=== PATIENT | female | born 1980 | race Hispanic/Latino ===

== ENCOUNTER 2016-08-12 13:52 | Emergency (ER) | payer MEDICAID, OTHER ==
[~2016-08-12] VITALS: Ht 154.9 cm; Wt 68.2 kg
[~2016-08-12 13:52] MED LIST: NOMED
[2016-08-12 14:06] VITALS: BP 133/79; PULSE 114; RESP 16; O2SAT 100
--- NOTE | 2016-08-12 14:27 | ED.REPORT ---
HPI- Female Date of Service August 12, 2016 ED Provider: Nick Banks MD Pt is a healthy 36 year old female who is 9 weeks presenting to the ED complaining of urinary symptoms onset 2 days ago. She reports bleeding after intercourse and dysuria. Denies fever, nausea, vomiting. Nursing Notes Stated Complaint: DYSURIA Chief Complaint: General Complaint Nursing Notes Reviewed: Yes ([employer], meds not reconciled) Allergies: Coded Allergies: No Known Allergies (Unverified Allergy, Unknown, 09/08/15) Scheduled Nitrofurantoin Monohyd/M-Cryst (MacroBid) 100 Mg Capsule 100 MG PO BID Miscellaneous Medications No Historical Medication (No Historical Medication) Ea General Time Seen by MD: 14:18 Chief Complaint Dysuria Hx Obtained From: Patient Arrived By: Walk-in Sudden in Onset?: No Onset Occurred: 2 days ago Symptom Duration: Since onset Quality: Painful Severity: Current: Mild Severity: Maximum: Mild Recent Healthcare: No recent doctor visit, No recent hospitalization Similar Sx Previous: No Risk- Female Ectopic Risk Stratification RF Statements: Risk factors reviewed Past Medical History Past Medical History None reported Past Surgical History None reported Smoking History Unknown if Ever Smoker Social History Drug Use: THC Ambulatory Status Independent Review of Systems Constitutional: Denies: Fever GI: Denies: Nausea, Vomiting Female: Reports: Dysuria, , Vaginal bleeding - abnl Complete sys rev & neg: except as marked. Physical Exam Initial Vital Signs Vital Signs (First) Date Time Temp Pulse Resp B/P Pulse Ox O2 Delivery O2 Flow Rate FiO2 08/12/16 14:06 36.6 114 16 133/79 100 Room Air Initial VS: Reviewed, Vital signs abnormal (tachycardic) General/Constitutional: Well-developed, Well-nourished Head / Eyes: Atraumatic, Normocephalic, PERRL ENT: Mucous membranes moist, Conjunctiva normal, No scleral icterus Neck: Supple, Non-tender, Full range of motion Respiratory: Breath sounds normal, Clear to auscultation, No respiratory distress Cardiovascular: Regular rate & rhythm, Heart sounds normal, Intact distal pulses Abdomen / GI: Soft, Non-tender, No guarding, No rebound, No distention Extremities: Vascular intact, Neuro intact, No swelling, No tenderness Skin: Warm, Dry, No cyanosis Neurologic: Alert, Oriented, Nonfocal Psychiatric: Mood/affect normal, Behavior normal, Normal thought content Interpretation & Diagnostics Lab Results Interpretation Result Diagram: 08/12/16 1515 Test 08/12/16 14:47 08/12/16 15:15 Urine Color Yellow (YELLOW) Urine Appearance Clear (CLEAR,HAZY) Urine pH 6.5 (5.0-8.0) Urine Specific [place] <1.005 (1.003-1.035) Urine Protein Negativemg/dL (NEG,TRACE) Urine Glucose (UA) Negativemg/dL (NEGATIVE) Urine Ketones Negativemg/dL (NEGATIVE) Urine Occult Blood Large (NEGATIVE) Urine Nitrite Negative (NEGATIVE) Urine Bilirubin Negative (NEGATIVE) Urine Urobilinogen Normalmg/dL (NORMAL) Urine Leukocyte Esterase Large (NEGATIVE) Urine RBC 3-10/hpf (0-2) Urine WBC >50/hpf (0-5) Urine Epithelial Cells Moderate/hpf (NONE-MOD) Urine Crystals None seen (NONE SEEN) Urine Bacteria Few/hpf (NONE-FEW) Urine Hyaline Casts None/lpf (NONE) Urine Granular Casts None seen (NONE SEEN) Urine Waxy Casts None seen (NONE SEEN) Urine Red Blood Cell Casts None seen (NONE SEEN) Urine White Blood Cell Casts None seen (NONE SEEN) Urine Mucus None seen (None Seen) Urine Trichomonas None seen (NONE SEEN) Urine Yeast None (NONE SEEN) Urinalysis Comment None Urine Culture Reflexed Indicated White Blood Count 10.5th/mm3 (3.8-10.1) Red Blood Count 4.02mil/mm3 (3.90-5.20) Hemoglobin 12.4g/dL (12.0-15.6) Hematocrit 37.0% (35.0-46.0) Mean Corpuscular Volume 92.0fL (81-100) Mean Corpuscular Hemoglobin 30.8pg (27.0-35.0) Mean Corpuscular Hemoglobin Concent 33.5% (32.0-37.0) Red Cell Distribution Width 12.0% (12.3-15.4) Platelet Count 320bil/L (150-400) Neutrophils (%) (Auto) 71.8% (40-74) Lymphocytes (%) (Auto) 18.7% (14-46) Monocytes (%) (Auto) 7.1% (4-12) Eosinophils (%) (Auto) 1.7% (0-5) Basophils (%) (Auto) 0.5% (0-3) HCG Beta Subunit 4102mIU/mL Hold [place] Top Tube Received (Received) Lab Results Interpretation: CBC normal quantitative hCG 4000 Rh+ US Focused OB IMPRESSION: 1. Single intrauterine with mean sac diameter corresponding to a gestational age of 6 weeks 6 days, discordant with the patient's dates by LMP. 2. Septated yolk sac demonstrated. 3. Small perigestational subchorionic hematomas. The constellation of findings is concerning for an anembryonic but continued clinical followup and possible repeat ultrasound are recommended. Findings discussed with Dr. Banks on 08/12/16 at 4:50 PM. Dictated by: Alejo oHuse M.D. on 08/12/2016 at 16:44 Exam Performed by: Radiologist Exam Interpreted by: Radiologist Indication: by patient hx, Vaginal bleeding Re-Eval/Medical Decision Med Decision/Clinical Course This is a 36-year-old female says she is about 8 weeks reviewed develop dysuria 2 days ago, and then had a transplant of a postcoital bleeding today. She has had multiple pregnancies with one previous miscarriage but no other difficulties. On exam she is heme and abdomen normal, soft nontender abdomen. Her urine is dip positive for leuks, urinalysis is positive for infection-so she was started on Macrodantin. An ultrasound reveals only a gestational sac, pole was not definitively identified and the patient describes similar findings on previous ultrasound indicating concern for incomplete development. No other overt pathology is identified, so they are not findings of her jase ectopic at this time, but the patient does need close follow-up is as not been fully excluded. Blood work is normal, Rh is positive. The patient is being discharged on a complete course of Macrodantin, return precautions reviewed, she is to call her software validation technician service tomorrow to schedule a recheck. Source of Hx: Old records Re-Evaluation/Progress : Time of Eval: 16:55 Patient Status: Condition improved Re-Evaluation/Progress Note: Discussed ultrasound results and plan for discharge. Pt understands and agrees. Counseled Regarding: Diagnosis, Lab results, Need for follow-up, When/why to return to ED Discharge & Departure Departure Notes Can not fully exclude ectopic, threatened miscarriage Impression: Primary Impression: Urinary tract infection Urinary tract infection type: acute cystitis Hematuria presence: without hematuria Qualified Code: N30.00 - Acute cystitis without hematuria Additional Impression: Weeks of gestation: less than 8 weeks Qualified Code: Z3A.01 - Less than 8 weeks gestation of Disposition: Home Discharge Condition All VS Reviewed: Yes Condition: Improved Additional Instructions: 1. You do have a urinary tract infection. 2. Take the antibiotic Macrobid 100 mg twice a day for 14 days. 3. Drink extra fluid. Symptoms should be improving in about 2 days, but please complete all of the antibiotics. 4. Return to the emergency department if new or worsening symptoms-such as: fever, back pain, vomiting, worsening vaginal bleeding or abdominal pain. 5. Your blood tests were normal, but on your ultrasound today we could not see all the structures to confirm the status of the (i.e. we could not identify a pole yet). This may mean that you are simply earlier in the than we thought you were - but the next step is a repeat ultrasound. Please call your software validation technician's office tomorrow to schedule follow up and a re-check. Referrals: [facility] (PCP) [facility] Attestation Portions of this note were transcribed by Dena Ayala. I, Dr. Banks personally performed the history, physical exam and medical decision-making; I reviewed and confirmed the accuracy of the information in the transcribed note. Signed by: Geno Gonzáles, 08/12/2016 at 1707. copies to: [facility] Nick Banks MD August 12, 2016 14:27 DENA AYALA August 12, 2016 14:49
[2016-08-12] MEDS ORDERED: Nitrofurantoin Monohyd-Macrocryst 100 mg Capsule PO ONE (14:50)
[2016-08-12 14:59] LABS: APPEARANCE,URINE CLEAR (CLEAR,HAZY); COLOR,URINE YELLOW (YELLOW); PH,URINE 6.5 (5.0-8.0)
[2016-08-12 15:00] LABS: OCCULT BLOOD,URINE LARGE (NEGATIVE); UROBILINOGEN,URINE NORMAL (NORMAL)
[2016-08-12 15:26] LABS: BASOPHILS % (AUTO) 0.5 % (0-3); EOSINOPHILS % (AUTO) 1.7 % (0-5); MONOCYTES % (AUTO) 7.1 % (4-12); Mean Corpuscular Hemoglobin 30.8 pg (27.0-35.0); NEUTROPHILS % (AUTO) 71.8 % (40-74); Platelet Count 320 bil/L (150-400)
[2016-08-12] MEDS ORDERED: Alum-Mag Hydrox-Simeth 30 mL Suspension PO PRN (16:55)
[2016-08-12] MEDS ORDERED: Ondansetron 2 mg/mL 2 mL Inj IVPUSH PRN (16:55)
--- NOTE | 2016-08-12 17:02 | DRSVH ---
PROCEDURE: US OB<14 WKS+OB TRANSVAG INDICATIONS: 36 year-old female with pain and bleeding. OUTSIDE/PRIOR DATING DATA: Last menstrual period (LMP): 06/04/16. LMP-based estimated date of delivery (CLAUDIO): 03/11/17. First dating scan (date and location): 08/12 517. Estimated date of delivery (CLAUDIO) from first dating scan: 04/01/17. TECHNIQUE: Real-time scanning was performed of the fetus and maternal pelvic organs, with image documentation. Endovaginal scanning was also performed to better visualize the fetus and maternal ovaries. COMPARISON: None. FINDINGS: Embryo: There is an intrauterine with a gestational sac demonstrating a mean sac diameter of 2 cm corresponding to a calculated gestational age of 6 weeks 6 days. There is an ovoid yolk sac demonstrated with suggestion of associated internal septation. No discrete pole visualized. T here are 2 small perigestational hypoechoic regions compatible with small subchorionic hematomas. Measurement variability in dating: +/- 4 weeks by LMP, +/- 7 days by mean sac diameter (use before 6 weeks gestation if crown-rump length not able to be measured), +/- 5 days by crown-rump length (6-12 weeks gestation). Maternal organs: Ovaries are normal in overall size. There is complex cystic lesion in the right ova ry measuring approximately 1.8 x 2.0 x 1.5 cm with peripheral vascularity and posterior acoustic enha ncement likely representing a corpus luteum cyst. There is an intramural fibroid within the uterine fundus measuring 3.3 x 2.9 x 2.3 cm. Limited images through the kidneys demonstrate no hydronephrosis . IMPRESSION: 1. Single intrauterine with mean sac diameter corresponding to a gestational age of 6 week s 6 days, discordant with the patient's dates by LMP. 2. Septated yolk sac demonstrated. 3. Small perigestational subchorionic hematomas. The constellation of findings is concerning for an anembryonic but continued clinical follo wup and possible repeat ultrasound are recommended. Findings discussed with Dr. Banks on 08/12/16 a t 4:50 PM. Dictated by: Alejo House M.D. on 08/12/2016 at 16:44 Approved by: Alejo House M.D. on 08/12/2016 at 16:55
[2016-08-12] MEDS ORDERED: NITR100 PO (17:04)
[2016-08-12 17:24] VITALS: BP 138/92; PULSE 122; RESP 16; O2SAT 100
== END 2016-08-12 17:25 | disposition home or self-care (01) ==
LOC: SED 13:52
DX: O23.41 Unspecified infection of urinary tract in pregnancy, first trimester (principal); B95.7 Other staphylococcus as the cause of diseases classified elsewhere; N93.0 Postcoital and contact bleeding; F12.10 Cannabis abuse, uncomplicated; Z3A.01 Less than 8 weeks gestation of pregnancy